=== PATIENT | male | born 1965 | race Caucasian/White ===

== ENCOUNTER 2018-06-10 20:28 | Emergency (ER) | payer SELFPAY ==
[2018-06-10 21:01] LABS: BASO # 0.1 K/uL (0.0-0.2); BASO % 0.8 % (0.0-2.0); EOS % 0.3 % (0.0-4.0); HEMOGLOBIN 16.7 g/dL (12.0-18.0); LYMPH # 1.4 K/uL (1.0-4.3); LYMPH % 16.9 % (20.0-40.0); MEAN CORPUSCULAR HEMOGLOBIN 27.6 pg (27.0-31.0); MEAN CORPUSCULAR HGB CONC 33.2 g/dL (33.0-37.0); MEAN PLATELET VOLUME 9.3 fL (7.2-11.7); MONO # 0.9 K/uL (0.0-0.8); MONO % 10.3 % (0.0-10.0); NEUT % 71.7 % (50.0-75.0); RBC 6.06 Mil/uL (4.40-5.90); RED CELL DISTRIBUTION WIDTH 14.2 % (11.5-14.5); WHITE BLOOD COUNT 8.4 K/uL (4.8-10.8)
[2018-06-10 21:02] LABS: URINE BILIRUBIN NEGATIVE (NEGATIVE); URINE BLOOD NEGATIVE (NEGATIVE); URINE CLARITY Clear (Clear); URINE COLOR Straw (YELLOW); URINE GLUCOSE (UA) NORMAL (Normal); URINE LEUKOCYTE ESTERASE NEG Leu/uL (Negative); URINE PROTEIN 2+ mg/dL (NEGATIVE); URINE UROBILINOGEN NORMAL mg/dL (0.2-1.0)
[2018-06-10 21:13] LABS: ALB/GLOB RATIO 1.4 (1.0-2.1); ALBUMIN 5.1 g/dL (3.5-5.0); ALT/SGPT 44 U/L (21-72); AST/SGOT 40 U/L (17-59); BLOOD UREA NITROGEN 11 mg/dL (9-20); CALCIUM 8.9 mg/dl (8.6-10.4); GFR NON-AFRICAN AMERICAN > 60
[2018-06-10 21:15] LABS: BARBITURATES, UR NEGATIVE (NEGATIVE); BENZODIAZEPINES, UR NEGATIVE (NEGATIVE); OPIATES, UR NEGATIVE (NEGATIVE); PHENCYCLIDINE, UR NEGATIVE (NEGATIVE)
[2018-06-10] MEDS ORDERED: Sodium Chloride 0.9% 500 ML IV ONE (21:59)
--- NOTE | 2018-06-10 22:25 | C.PDOC ---
History Of Present Illness 53 y/o male BIBA for alcohol intoxication. Patient was found on the street face down, appearing intoxicated. History is limited due to patient's intoxication. Time Seen by Provider: 06/10/18 20:32 Chief Complaint (Nursing): Substance Abuse History Per: EMS History/Exam Limitations: intoxication Onset/Duration Of Symptoms: Hrs Current Symptoms Are (Timing): Still Present Past Medical History Reviewed: Historical Data, Nursing Documentation, Vital Signs Vital Signs: Last Vital Signs Temp 100.0 F H 06/10/18 20:32 Pulse 129 H 06/10/18 20:32 Resp 20 06/10/18 20:32 BP 183/109 H 06/10/18 20:32 Pulse Ox 95 06/10/18 20:32 Family History: States: No Known Family Hx - Social History Hx Alcohol Use: Yes Hx Substance Use: No - Immunization History Hx Tetanus Toxoid Vaccination: No Hx Influenza Vaccination: No Hx Pneumococcal Vaccination: No Review Of Systems Review Of Systems: ROS cannot be obtained secondary to pt's inabilty to answer questions. Physical Exam - Physical Exam Appears: Other (Intoxicated) Skin: Warm, Dry Head: Atraumatic, Normacephalic Eye(s): bilateral: Normal Inspection Nose: Other (Large abrasion on nasal bridge) Oral Mucosa: Moist Neck: Normal ROM, Supple Chest: Symmetrical Cardiovascular: Rhythm Regular (tachycardic), No Murmur Respiratory: Normal Breath Sounds, No Rales, No Rhonchi, No Wheezing Gastrointestinal/Abdominal: Soft, No Tenderness Extremity: Bilateral: Normal Color And Temperature, Normal ROM Neurological/Psych: Oriented x3, Normal Speech ED Course And Treatment - Laboratory Results Result Diagrams: 06/10/18 20:57 06/10/18 20:57 O2 Sat by Pulse Oximetry: 95 (RA) Pulse Ox Interpretation: Normal - CT Scan/US Head CT Other Rad Studies (CT/US): Read By Radiologist, Radiology Report Reviewed CT/US Interpretation: FINDINGS: BRAIN. No acute intraparenchymal hemorrhage. No mass lesion. No CT evidence for acute territorial infarct. No midline shift or extra-axial collections. VENTRICLES: No hydrocephalus. ORBITS: The orbits are unremarkable. SINUSES AND MASTOIDS: The paranasal sinuses and mastoid air cells are clear. BONES: No fracture. SOFT TISSUES: Right forehead soft tissue contusion. IMPRESSION: 1. No acute intracranial pathology identified. 2. Right forehead soft tissue contusion. 3. Consider MRI for further evaluation as clinically warranted. Maxillofacial CT Other Rad Studies (CT/US): Read By Radiologist, Radiology Report Reviewed CT/US Interpretation: FINDINGS: BONES: a bone fracture is not identified. SOFT TISSUES: soft tissue contusion of right forehead. SINUSES: There is almost complete opacification of the left maxillary sinus consistent with sinusitis. ORBITS: The orbits are normal. No retrobulbar hematoma or mass. IMPRESSION: 1. a bone fracture is not identified. 2. There is almost complete opacification of the left maxillary sinus consistent with sinusitis. Progress Note: Bloodwork, Chest XR, CT head and facial bones ordered and reviewed. CT was negative. Patient was given some IV fluids and tylenol PO. Disposition Counseled Patient/Family Regarding: Studies Performed, Diagnosis, Need For Followup - Disposition Referrals: [facility] [Outside] Disposition: HOME/ ROUTINE Disposition Time: 23:30 Condition: STABLE Instructions: Alcohol Abuse and Alcoholism (DC), Polysubstance Abuse (DC) Forms: [employer] (Vietnamese) Print Language: TURKMEN - Clinical Impression Clinical Impression: Cocaine use, Alcohol abuse - Scribe Statement The provider has reviewed the documentation as recorded by the Elizabeth Mckay Provider Attestation: All medical record entries made by the Elizabeth were at my direction and personally dictated by me. I have reviewed the chart and agree that the record accurately reflects my personal performance of the history, physical exam, medical decision making, and the department course for this patient. I have also personally directed, reviewed, and agree with the discharge instructions and disposition.
[2018-06-10 22:36] VITALS: BP 151/94; RESP 16; TEMP 97.7
[2018-06-10 22:48] VITALS: PULSE 117
[2018-06-10 23:20] VITALS: O2SAT 95
--- NOTE | 2018-06-11 09:03 | CT ---
Date of service: 06/10/2018 PROCEDURE: CT HEAD WITHOUT CONTRAST. HISTORY: Altered mental status COMPARISON: None available. TECHNIQUE: Axial computed tomography images were obtained through the head/brain without intravenous contrast. Radiation dose: Total exam DLP = 1136.43 mGy-cm. This CT exam was performed using one or more of the following dose reduction techniques: Automated exposure control, adjustment of the mA and/or kV according to patient size, and/or use of iterative reconstruction technique. FINDINGS: HEMORRHAGE: No intracranial hemorrhage. BRAIN: Hdez-white matter differentiation is preserved. 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 There is no mass, mass effect or abnormal extra-axial fluid collection. There is no territorial infarction. The midline sagittal structures are normal. VENTRICLES: The ventricles are normal in size, shape and configuration. CALVARIUM: There is no calvarial fracture. There is mild right frontal soft tissue swelling. PARANASAL SINUSES: Predominantly clear. MASTOID AIR CELLS: Predominantly clear. OTHER FINDINGS: None. IMPRESSION: No acute intracranial abnormality.
--- NOTE | 2018-06-11 09:33 | CT ---
Date of service: 06/10/2018 PROCEDURE: CT MAXILLOFACIAL BONES WITHOUT CONTRAST HISTORY: head/facial injury, intoxicated COMPARISON: None available. TECHNIQUE: Contiguous axial CT images of the maxillofacial bones were obtained. Coronal and sagittal reformats were generated. Radiation dose: Total exam DLP = 768.6 mGy-cm. This CT exam was performed using one or more of the following dose reduction techniques: Automated exposure control, adjustment of the mA and/or kV according to patient size, and/or use of iterative reconstruction technique. FINDINGS: NASAL BONES: No acute fracture. ORBITS: No acute fracture. The globes are symmetric and normal in appearance. PARANASAL SINUSES/ MASTOIDS: Mild mucosal thickening in the right maxillary sinus and moderate polypoid mucosal thickening in the left maxillary sinus. MAXILLA: No acute maxillofacial fracture. MANDIBLE/ TEMPOROMANDIBULAR JOINTS: No acute fracture or dislocation. SKULL BASE: Unremarkable. TEMPORAL BONES: Middle ears and mastoid grossly unremarkable. OTHER FINDINGS: There mild round frontal soft tissue swelling.. IMPRESSION: No acute nasal bone, orbital or maxillofacial fracture. Chronic maxillary sinusitis, worse on the left with Mild right frontal soft tissue swelling. A preliminary report was provided by [employer].
--- NOTE | 2018-06-11 10:23 | RAD ---
Date of service: 06/10/2018 PROCEDURE: CHEST RADIOGRAPH, 1 VIEW HISTORY: tachycardic COMPARISON: None available. FINDINGS: LUNGS: The lungs are well inflated and clear. PLEURA: No pneumothorax or pleural effusion. CARDIOVASCULAR: The heart is normal in size. No aortic atherosclerotic calcifications present. OSSEOUS STRUCTURES: Within normal limits for the patient's age. VISUALIZED UPPER ABDOMEN: Normal. OTHER FINDINGS: None. IMPRESSION: No active pulmonary disease.
== END 2018-06-10 23:22 | disposition home or self-care (01) ==
LOC: C.ER 20:28
DX: F10.10 Alcohol abuse, uncomplicated (principal); F14.90 Cocaine use, unspecified, uncomplicated
CPT/HCPCS: 70450; 70480; 71045; 80053; 81001; 82948; 85025; 87804; 99285; G0480; J7040